=== PATIENT | female | born 1950 | race Caucasian/White ===

== ENCOUNTER 2024-10-06 19:13 | Inpatient (IN) | payer MEDICARE, OTHER ==
--- NOTE | 2024-10-06 20:19 | ED ---
General Adult HPI - General Chief complaint: Shortness of Breath Stated complaint: difficulty breathing Time Seen by Provider: 10/06/24 19:31 Source: patient Mode of arrival: EMS Limitations: no limitations - History of Present Illness Initial comments: Dictation was produced using [employer] dictation software. please excuse any grammatical, word or spelling errors. Chief Complaint: 74-year-old female with rectal cancer presents to the emergency department for dyspnea History of Present Illness: Patient 74-year-old female multiple comorbidities. She has history of rectal cancer on chemotherapy presents emergency department for worsening dyspnea. She states she has history of COPD and wears oxygen at home. States that she has a cough. Denies any fever chills or night sweats. Does not take any anticoagulation medications. Denies any chest pain. The ROS documented in this emergency department record has been reviewed and confirmed by me. Those systems with pertinent positive or negative responses have been documented in the HPI. All other systems are other negative and/or noncontributory. - Related Data Allergies Allergy/AdvReac Type Severity Reaction Status Date / Time cefuroxime [From Ceftin] Allergy Rash/Hives Verified 10/06/24 19:22 naproxen Allergy Rash/Hives Verified 10/06/24 19:21 Review of Systems ROS Statement: Those systems with pertinent positive or pertinent negative responses have been documented in the HPI. ROS Other: All systems not noted in ROS Statement are negative. Past Medical History Additional Past Medical History / Comment(s): rectal cancer currently being treated. colostomy bag. History of Any Multi-Drug Resistant Organisms: None Reported Additional Past Surgical History / Comment(s): 3x rectal surgery. steve haider Past Psychological History: No Psychological Hx Reported Smoking Status: Current every day smoker Past Alcohol Use History: None Reported Past Drug Use History: None Reported General Exam - General Exam Comments Initial Comments: PHYSICAL EXAM: General Impression: Alert and oriented x3, dyspneic HEENT: Normocephalic atraumatic, extra-ocular movements intact, pupils equal and reactive to light bilaterally, mucous membranes moist. Cardiovascular: Heart regular rate and rhythm Chest: Retracting, poor air exchange, mild expiratory and inspiratory wheezing Abdomen: abdomen soft, non-tender, non-distended, no organomegaly Musculoskeletal: Pulses present and equal in all extremities, 1+ pitting edema bilaterally Motor: no focal deficits noted Neurological: CN II-XII grossly intact, no focal motor or sensory deficits noted Skin: Intact with no visualized rashes Psych: Normal affect and mood Limitations: no limitations Course Vital Signs 10/06/24 10/06/24 10/06/24 19:15 20:10 20:58 Temperature 98.0 F Pulse Rate 97 93 91 Respiratory 24 22 Rate Blood Pressure 169/86 153/87 O2 Sat by Pulse 100 98 Oximetry 10/06/24 21:08 Temperature Pulse Rate 90 Respiratory Rate Blood Pressure O2 Sat by Pulse Oximetry EKG Findings - EKG Comments: EKG Findings:: My EKG interpretation: Ventricular rate 97, sinus rhythm,. 150, QRS 81, QTc 403. No FL prolongation, no QTC prolongation, no ST or T-wave changes noted. . Overall, this EKG is unremarkable Medical Decision Making - Medical Decision Making Was pt. sent in by a medical professional or institution (, PA, MACH[employer], urgent care, hospital, or prison...) When possible be specific @ -No Did you speak to anyone other than the patient for history (EMS, parent, family, police, friend...)? What history was obtained from this source @ -No Did you review nursing and triage notes (agree or disagree)? Why? @ -I reviewed and agree with nursing and triage notes Were old charts reviewed (outside hosp., previous admission, EMS record, old EKG, old radiological studies, urgent care reports/EKG's, prison records)? Report findings @ -No old charts were reviewed Differential Diagnosis (chest pain, altered mental status, abdominal pain women, abdominal pain men, vaginal bleeding, musculoskeletal, weakness, fever, dyspnea, syncope, headache, dizziness, GI bleed, back pain, seizure, CVA, palpatations, mental health)? @ -Differential Dyspnea: Coronary syndrome, arrhythmia, tamponade, asthma, COPD, pulmonary embolism, pneumonia, pneumothorax, pulmonary effusion, anaphylaxis, diabetic ketoacidosis, flailed chest, pulmonary contusion, diaphragmatic rupture, anemia, n euromuscular, this is not meant to be an all-inclusive list. EKG interpreted by me (3pts min.). @ -See above X-rays interpreted by me (1pt min.). @ -Chest x-ray shows COPD CT interpreted by me (1pt min.). @ -CT angio of the chest shows no PE U/S interpreted by me (1pt. min.). @ -None done What testing was considered but not performed or refused? (CT, X-rays, U/S, labs)? Why? @ -None What meds were considered but not given or refused? Why? @ -None Was smoking cessation discussed for >3mins.? @ -No Were there social determinants of health that impacted care today? How? (Homelessness, low income, unemployed, alcoholism, drug addiction, transportation, low edu. Level, literacy, decrease access to med. care, correction, rehab)? @ -No Was there de-escalation of care discussed even if they declined (Discuss DNR or withdrawal of care, Hospice)? DNR status @ -No What co-morbidities impacted this encounter? (DM, HTN, Smoking, COPD, CAD, Cancer, CVA, ARF, Chemo, Hep., AIDS, mental health diagnosis, sleep apnea, morbid obesity)? @ -Rectal cancer, COPD Was patient admitted / discharged? Hospital course, mention meds given and route, prescriptions, significant lab abnormalities, going to OR and other pertinent info. @ -74-year-old female history of rectal cancer presents to the ER for worsening dyspnea. Vital signs upon arrival are within acceptable limits however patient does appear to be significantly dyspneic at the bedside. Laboratory evaluation obtained labs mostly unremarkable. Elevated D-dimer 3.6. CT angiography shows no PE or any other acute processes. Given patient's work of breathing she is to be admitted for respiratory failure consultation to pulmonology. Patient given Decadron. Case discussed with hospitalist for admission Did you discuss the management of the patient with other professionals (professionals i.e. , PA, M[employer], lab, RT, psych nurse, social media job titles, lawyer criminal, teacher, combat systems officer, case investigator)? Give summary @ -See above Was critical care preformed (if so, how long)? @ -No Undiagnosed new problem with uncertain prognosis? @ -No Drug Therapy requiring intensive monitoring for toxicity (Heparin, Nitro, Insulin, Cardizem)? @ -No Were any procedures done? @ -No Diagnosis/symptom? Acute, or Chronic, or Acute on Chronic? Uncomplicated (without systemic symptoms) or Complicated (systemic symptoms)? @ -COPD complicated by respiratory failure Side effects of treatment? @ -No Exacerbation, Progression, or Severe Exacerbation? @ -yes Poses a threat to life or bodily function? How? (Chest pain, USA, LA, pneumonia, PE, COPD, DKA, ARF, appy, cholecystitis, CVA, Diverticulitis, Homicidal, Suicidal, threat to staff... and all critical care pts) @ -yes - Lab Data Result diagrams: 10/06/24 20:05 10/06/24 20:05 Lab Results 10/06/24 10/06/24 10/06/24 Range/Units 20:05 20:05 20:05 WBC 9.1 (3.8-10.6) k/uL RBC 3.97 (3.80-5.40) m/uL Hgb 11.0 L (11.4-16.0) gm/dL Hct 36.8 (34.0-46.0) % MCV 92.7 (80.0-100.0) fL MCH 27.8 (25.0-35.0) pg MCHC 30.0 L (31.0-37.0) g/dL RDW 17.1 H (11.5-15.5) % Plt Count 259 (150-450) k/uL MPV 7.5 Neutrophils % 69 % Lymphocytes % 14 % Monocytes % 9 % Eosinophils % 4 % Basophils % 0 % Neutrophils # 6.3 (1.3-7.7) k/uL Lymphocytes # 1.3 (1.0-4.8) k/uL Monocytes # 0.8 (0-1.0) k/uL Eosinophils # 0.4 (0-0.7) k/uL Basophils # 0.0 (0-0.2) k/uL Hypochromasia Marked Anisocytosis Slight PT 10.4 (10.0-12.5) sec INR 0.9 (<1.2) APTT 18.1 L (22.0-30.0) sec D-Dimer (<0.60) mg/L FEU Sodium 136 L (137-145) mmol/L Potassium 3.9 (3.5-5.1) mmol/L Chloride 99 (98-107) mmol/L Carbon Dioxide 27 (22-30) mmol/L Anion Gap 10 mmol/L BUN 15 (7-17) mg/dL Creatinine 0.80 (0.52-1.04) mg/dL Est GFR (CKD-EPI)AfAm 84 (>60 ml/min/1.73 sqM) Est GFR (CKD-EPI)NonAf 73 (>60 ml/min/1.73 sqM) Glucose 122 H (74-99) mg/dL Plasma Lactic Acid El (0.7-2.0) mmol/L Calcium 9.2 (8.4-10.2) mg/dL Magnesium 2.0 (1.6-2.3) mg/dL Total Bilirubin 0.5 (0.2-1.3) mg/dL AST 18 (14-36) U/L ALT 12 (4-34) U/L Alkaline Phosphatase 140 H (38-126) U/L Troponin I (0.000-0.034) ng/mL NT-Pro-B Natriuret Pep 397 pg/mL Total Protein 6.8 (6.3-8.2) g/dL Albumin 4.2 (3.5-5.0) g/dL Influenza Type A (PCR) (Not Detectd) Influenza Type B (PCR) (Not Detectd) RSV (PCR) (Not Detectd) SARS-CoV-2 (PCR) (Not Detectd) 10/06/24 10/06/24 10/06/24 Range/Units 20:05 20:05 20:05 WBC (3.8-10.6) k/uL RBC (3.80-5.40) m/uL Hgb (11.4-16.0) gm/dL Hct (34.0-46.0) % MCV (80.0-100.0) fL MCH (25.0-35.0) pg MCHC (31.0-37.0) g/dL RDW (11.5-15.5) % Plt Count (150-450) k/uL MPV Neutrophils % % Lymphocytes % % Monocytes % % Eosinophils % % Basophils % % Neutrophils # (1.3-7.7) k/uL Lymphocytes # (1.0-4.8) k/uL Monocytes # (0-1.0) k/uL Eosinophils # (0-0.7) k/uL Basophils # (0-0.2) k/uL Hypochromasia Anisocytosis PT (10.0-12.5) sec INR (<1.2) APTT (22.0-30.0) sec D-Dimer 3.60 H (<0.60) mg/L FEU Sodium (137-145) mmol/L Potassium (3.5-5.1) mmol/L Chloride (98-107) mmol/L Carbon Dioxide (22-30) mmol/L Anion Gap mmol/L BUN (7-17) mg/dL Creatinine (0.52-1.04) mg/dL Est GFR (CKD-EPI)AfAm (>60 ml/min/1.73 sqM) Est GFR (CKD-EPI)NonAf (>60 ml/min/1.73 sqM) Glucose (74-99) mg/dL Plasma Lactic Acid El 1.4 (0.7-2.0) mmol/L Calcium (8.4-10.2) mg/dL Magnesium (1.6-2.3) mg/dL Total Bilirubin (0.2-1.3) mg/dL AST (14-36) U/L ALT (4-34) U/L Alkaline Phosphatase (38-126) U/L Troponin I <0.012 (0.000-0.034) ng/mL NT-Pro-B Natriuret Pep pg/mL Total Protein (6.3-8.2) g/dL Albumin (3.5-5.0) g/dL Influenza Type A (PCR) (Not Detectd) Influenza Type B (PCR) (Not Detectd) RSV (PCR) (Not Detectd) SARS-CoV-2 (PCR) (Not Detectd) 10/06/24 Range/Units 20:08 WBC (3.8-10.6) k/uL RBC (3.80-5.40) m/uL Hgb (11.4-16.0) gm/dL Hct (34.0-46.0) % MCV (80.0-100.0) fL MCH (25.0-35.0) pg MCHC (31.0-37.0) g/dL RDW (11.5-15.5) % Plt Count (150-450) k/uL MPV Neutrophils % % Lymphocytes % % Monocytes % % Eosinophils % % Basophils % % Neutrophils # (1.3-7.7) k/uL Lymphocytes # (1.0-4.8) k/uL Monocytes # (0-1.0) k/uL Eosinophils # (0-0.7) k/uL Basophils # (0-0.2) k/uL Hypochromasia Anisocytosis PT (10.0-12.5) sec INR (<1.2) APTT (22.0-30.0) sec D-Dimer (<0.60) mg/L FEU Sodium (137-145) mmol/L Potassium (3.5-5.1) mmol/L Chloride (98-107) mmol/L Carbon Dioxide (22-30) mmol/L Anion Gap mmol/L BUN (7-17) mg/dL Creatinine (0.52-1.04) mg/dL Est GFR (CKD-EPI)AfAm (>60 ml/min/1.73 sqM) Est GFR (CKD-EPI)NonAf (>60 ml/min/1.73 sqM) Glucose (74-99) mg/dL Plasma Lactic Acid El (0.7-2.0) mmol/L Calcium (8.4-10.2) mg/dL Magnesium (1.6-2.3) mg/dL Total Bilirubin (0.2-1.3) mg/dL AST (14-36) U/L ALT (4-34) U/L Alkaline Phosphatase (38-126) U/L Troponin I (0.000-0.034) ng/mL NT-Pro-B Natriuret Pep pg/mL Total Protein (6.3-8.2) g/dL Albumin (3.5-5.0) g/dL Influenza Type A (PCR) Not Detected (Not Detectd) Influenza Type B (PCR) Not Detected (Not Detectd) RSV (PCR) Not Detected (Not Detectd) SARS-CoV-2 (PCR) Not Detected (Not Detectd) Disposition Clinical Impression: COPD exacerbation Disposition: ADMITTED IP TO THIS HOSP Condition: Fair Referrals: None,Stated [REFERRING] - 1-2 days Decision Time: 22:01
[2024-10-06 20:24] LABS: Anisocytosis Slight; Basophils % (A) 0 %; Eosinophils # (A) 0.4 k/uL (0-0.7); Eosinophils % (A) 4 %; HCT 36.8 % (34.0-46.0); Hypochromasia Marked; Lymphocytes # (A) 1.3 k/uL (1.0-4.8); Lymphocytes % (A) 14 %; MCH 27.8 pg (25.0-35.0); MCV 92.7 fL (80.0-100.0); Mean Platelet Volume 7.5; Monocytes # (A) 0.8 k/uL (0-1.0); Monocytes % (A) 9 %; Neutrophils # (A) 6.3 k/uL (1.3-7.7); Neutrophils % (A) 69 %; Platelet Count 259 k/uL (150-450); RBC 3.97 m/uL (3.80-5.40); RDW 17.1 % (11.5-15.5); WBC 9.1 k/uL (3.8-10.6)
[2024-10-06 20:40] LABS: INR 0.9 (<1.2); Prothrombin Time 10.4 sec (10.0-12.5)
[2024-10-06] MEDS: DEXAMETHASONE SOD PHOSPHATE 10 MG/ML 1 ML VIAL IV STA (20:41)
--- NOTE | 2024-10-06 20:44 | XR ---
EXAMINATION TYPE: XR chest 2V DATE OF EXAM: 10/06/2024 8:25 PM COMPARISON: None CLINICAL INDICATION: Female, 74 years old with history of dyspnea; [facility] TECHNIQUE: XR chest 2V Frontal and lateral views of the chest. FINDINGS: Lungs/Pleura: There is flattening of the diaphragm with increased lucency of the lungs. No evidence o f pneumothorax, pleural effusion or focal consolidation. Pulmonary vascularity: Unremarkable. Heart/mediastinum: Cardiomediastinal silhouette is unremarkable. Musculoskeletal: No acute osseous pathology. Other findings: None Lines/Tubes: Ualviv-a-Jylu projecting over the right hemithorax with distal tip at the cavoatrial junction. IMPRESSION: 1. No acute cardiopulmonary disease process. 2. COPD changes. [facility], , 10/06/2024 8:41 PM
[2024-10-06 20:49] LABS: Partial Thromboplastin Time 18.1 sec (22.0-30.0)
[2024-10-06 20:54] LABS: ALT 12 U/L (4-34); AST 18 U/L (14-36); African American GFR (CKD) 84 (>60 ml/min/1.73 sqM); Albumin 4.2 g/dL (3.5-5.0); Alkaline Phosphatase 140 U/L (38-126); Anion Gap 10 mmol/L; Blood Urea Nitrogen 15 mg/dL (7-17); Calcium 9.2 mg/dL (8.4-10.2); Carbon Dioxide 27 mmol/L (22-30); Chloride 99 mmol/L (98-107); Glucose 122 mg/dL (74-99); Non-African American GFR(CKD) 73 (>60 ml/min/1.73 sqM); Potassium 3.9 mmol/L (3.5-5.1); Sodium 136 mmol/L (137-145); Total Bilirubin 0.5 mg/dL (0.2-1.3); Total Protein 6.8 g/dL (6.3-8.2)
[2024-10-06] MEDS: IPRATROPIUM-ALBUTEROL 3 ML NEB INHALATION STA (20:57)
[2024-10-06 21:00] LABS: Influenza A Not Detected (Not Detectd); Influenza B Not Detected (Not Detectd); RSV Not Detected (Not Detectd)
[2024-10-06 21:02] LABS: NT-Pro-B-Type Natriuretic Pept 397 pg/mL
[2024-10-06] MEDS: HYDROmorphone 1 MG/ML 1 ML SYRINGE IVP STA (21:12)
--- NOTE | 2024-10-06 21:46 | CT ---
EXAMINATION TYPE: CT angio chest DATE OF EXAM: 10/06/2024 9:43 PM COMPARISON: Chest radiograph from same day. CLINICAL INDICATION: Female, 74 years old with history of positive D-dimer; COPD exacerbation from ho me. pt speaking few words at a time. AOx4 TECHNIQUE/CONTRAST: CTA scan of the thorax is performed with IV Contrast, patient injected with 57 ml mL of Isovue 370, M IP images are created and reviewed these are created on a separate workstation.. CT DLP: 176 mGycm, Automated exposure control for dose reduction was used. FINDINGS: Lungs/Pleura: No evidence of focal consolidation, pleural effusion or pneumothorax. Mild centrilobula r emphysema changes. Flattening of the diaphragm. Airway: Large airways are patent. Heart: Size within normal limits Vasculature: There is no evidence for a filling defect within the pulmonary vasculature to suggest ac miles pulmonary embolism. The pulmonary artery is of normal size. Right chest wall Cbyblx-k-Ludp with tip terminating in the superior vena cava. Mild atherosclerosis of the arterial vasculature. Mediastinum: No gross evidence of adenopathy. Musculoskeletal: No acute osseous abnormalities Soft Tissues/lymph nodes: Bilateral breast implants appear intact. Lower neck: No significant findings. Upper Abdomen: No significant findings. IMPRESSION: 1. No evidence of pulmonary embolism. 2. Mild COPD. 3. Bilateral breast implants appear intact. [facility], , 10/06/2024 9:44 PM
[2024-10-06] MEDS ORDERED: NALOXONE 0.4 MG/ML 1 ML VIAL IVP PRN (21:57)
[2024-10-06] MEDS ORDERED: ACETAMINOPHEN TAB 325 MG TAB PO PRN (21:57)
[2024-10-06] MEDS: AZITHROMYCIN 500 MG TAB PO SCH (23:08)
[2024-10-06] MEDS: PHENYTOIN SODIUM EXTENDED 100 MG CAP PO STA (23:42)
[2024-10-07] MEDS: ONDANSETRON 4 MG/2 ML VIAL IVP PRN (02:17)
--- NOTE | 2024-10-07 03:04 | P.HPIM ---
History of Present Illness H&P Date: 10/07/24 History of present illness; Patient is a 74-year-old female with colorectal cancer (stage 2 as reported by patient, s/p colectomy and colostomy, completed radiation and currently undergoing 3rd round of chemo, following with Oncology out of [facility]), hypertension, COPD, chronic respiratory failure on 2 L home oxygen presents with new onset shortness of breath. Patient states she has had trouble breathing and productive cough for the last several days. She reports some associated chills, back pain, weakness and dizziness. Denies recent immobilization or pleuritic pain. She also reports echocardiogram done at [facility] completed about 2 months ago, and is unsure of results however was subsequently began on Lasix. Patient reports absence of chest pain, palpitations, diaphoresis, abdominal pain, nausea, vomiting, diarrhea, myalgia, headache, and dysuria. Spoke with the ER physician, patient admission was accepted by internal medicine service for treatment. REVIEW OF SYSTEMS: Pertinent positives and negatives noted in HPI. PHYSICAL EXAMINATION: Vitals reviewed GENERAL: Resting comfortably in bed. Frail EYES: PERRL, no scleral injection or icterus. No vision loss HENT: Normocephalic, atraumatic, hearing acuity intact, moist mucous membranes NECK: No tracheal deviation, full range of motion. CARDIOVASCULAR: S1 and S2 present. Tachycardic. No murmurs, rubs, or gallops. PULMONARY: Bilateral expiratory wheezing with some diffuse coarse breath sounds, no wheezing, rhonchi, or crackles. ABDOMEN: Soft, nontender, nondistended. No palpable organomegaly, colostomy bag in place with yellow liquid stool MUSCULOSKELETAL: No apparent joint swelling and deformities EXTREMITIES: No apparent cyanosis, clubbing. 1+ pedal edema NEUROLOGICAL: Alert and oriented. Gross neurological examination with no apparent focal deficits. SKIN: Right upper chest wall Chemo-Port ER FINDINGS: Labs significant for hemoglobin 11.0, D-dimer 3.6, sodium 136, glucose 122, alkaline phosphatase 140, troponin <0.012, proBNP 397 EKG independently interpreted showed sinus rhythm, heart rate of 97, QTc 403, no ST segment elevation or depression seen, no T-wave inversions seen. Chest x-ray done independently interpreted showed no acute cardiopulmonary process. CT angio chest independently interpreted no evidence of pulmonary embolism, mild COPD. Assessment and Plan: In summary, patient is a 74-year-old female with colorectal cancer recently completed chemotherapy, hypertension, COPD, chronic respiratory failure on 2 L home oxygen presents with new onset shortness of breath. #Acute COPD exacerbation with acute on chronic hypoxic respiratory failure - Chest x-ray no acute process Viral respiratory panel negative - Begin bronchodilators DuoNeb 0.5-3mg/3ml 4 times daily and QID prn - Initiate Solumedrol 40 mg IV q6h - Empiric antibiotics, begin azithromycin 500 mg daily, day #1 Begin Mucinex 600 mg every 12 hours - Continue O2 supplementation - Pulmonology consulted # Peripheral edema, amlodipine versus new diagnosis CHF versus chemotherapy side effect Echocardiogram ordered Consider reducing amlodipine to 5 mg #Elevated ALP Monitor CMP Chronic Medical Conditions #Essential hypertension - Resume home Amlodipine, Lasix #GERD- Resume home Pantoprazole #Colorectal cancer, stage unverified #Seizuresresume phenytoin DVT ppx: Subq Lovenox 40 meq daily Code status: Full code F: P.o. E: Replete as needed N: Heart healthy diet A: Ambulatory Anticipated discharge place: Pending clinical course Anticipated discharge time: Pending clinical course Dictation was produced using [employer] dictation software. Please excuse any gramm atical, word or spelling errors. Past Medical History Past Medical History: Heart Failure, COPD, GERD/Reflux, Hypertension Additional Past Medical History / Comment(s): rectal cancer currently being treated. colostomy bag. new chf History of Any Multi-Drug Resistant Organisms: None Reported Additional Past Surgical History / Comment(s): 3x rectal surgery. steve haider Past Anesthesia/Blood Transfusion Reactions: No Reported Reaction Past Psychological History: No Psychological Hx Reported Smoking Status: Current every day smoker Past Alcohol Use History: None Reported Past Drug Use History: None Reported Medications and Allergies Allergies Allergy/AdvReac Type Severity Reaction Status Date / Time cefuroxime [From Ceftin] Allergy Rash/Hives Verified 10/06/24 19:22 naproxen Allergy Rash/Hives Verified 10/06/24 19:21 Physical Exam Vitals: Vital Signs Temp Pulse Pulse Resp BP BP Pulse Ox 10/07/24 00:52 97.6 F 94 16 161/90 98 10/06/24 23:14 98.2 F 95 18 149/74 97 10/06/24 21:08 90 10/06/24 20:58 91 10/06/24 20:10 93 22 153/87 98 10/06/24 19:15 98.0 F 97 24 169/86 100 Intake and Output 10/06/24 10/06/24 10/07/24 14:59 22:59 06:59 Other: Weight 45.359 kg 45.359 kg Results CBC & Chem 7: 10/06/24 20:05 10/06/24 20:05 Labs: Abnormal Lab Results - Last 24 Hours (Table) 10/06/24 10/06/24 10/06/24 Range/Units 20:05 20:05 20:05 Hgb 11.0 L (11.4-16.0) gm/dL MCHC 30.0 L (31.0-37.0) g/dL RDW 17.1 H (11.5-15.5) % APTT 18.1 L (22.0-30.0) sec D-Dimer (<0.60) mg/L FEU Sodium 136 L (137-145) mmol/L Glucose 122 H (74-99) mg/dL Alkaline Phosphatase 140 H (38-126) U/L 10/06/24 Range/Units 20:05 Hgb (11.4-16.0) gm/dL MCHC (31.0-37.0) g/dL RDW (11.5-15.5) % APTT (22.0-30.0) sec D-Dimer 3.60 H (<0.60) mg/L FEU Sodium (137-145) mmol/L Glucose (74-99) mg/dL Alkaline Phosphatase (38-126) U/L Thrombosis Risk Factor Assmnt - Choose All That Apply Any of the Below Risk Factors Present?: Yes Each Factor Represents 1 point: Abnormal pulmonary function (COPD), Swollen legs (current) Other Risk Factors: Yes Each Risk Factor Represents 2 Points: Malignancy Other congenital or acquired thrombophilia - If yes, enter type in comment: No Thrombosis Risk Factor Assessment Total Risk Factor Score: 4 Thrombosis Risk Factor Assessment Level: Moderate Risk
[2024-10-07 06:14] LABS: ALT 12 U/L (4-34); AST 16 U/L (14-36); African American GFR (CKD) >90 (>60 ml/min/1.73 sqM); Albumin 3.5 g/dL (3.5-5.0); Albumin/Globulin Ratio 1.5; Alkaline Phosphatase 115 U/L (38-126); Anion Gap 5 mmol/L; Blood Urea Nitrogen 13 mg/dL (7-17); Calcium 9.3 mg/dL (8.4-10.2); Carbon Dioxide 28 mmol/L (22-30); Chloride 101 mmol/L (98-107); Globulin 2.3 g/dL; Glucose 137 mg/dL (74-99); Non-African American GFR(CKD) >90 (>60 ml/min/1.73 sqM); Sodium 134 mmol/L (137-145); Total Bilirubin 0.3 mg/dL (0.2-1.3); Total Protein 5.8 g/dL (6.3-8.2)
[2024-10-07] MEDS: HYDROcodone/APAP 5-325MG 1 EACH TAB PO PRN (06:45)
[2024-10-07] MEDS: methylPREDNISolone SOD SUCCI 40 MG/ML 1 ML VIAL IV SCH (06:46)
[2024-10-07 07:50] LABS: Anisocytosis Slight; Basophils % (A) 0 %; Eosinophils % (A) 0 %; HCT 33.2 % (34.0-46.0); HGB 9.7 gm/dL (11.4-16.0); Hypochromasia Marked; Lymphocytes # (A) 0.4 k/uL (1.0-4.8); Lymphocytes % (A) 12 %; MCH 27.8 pg (25.0-35.0); MCHC 29.3 g/dL (31.0-37.0); Monocytes # (A) 0.2 k/uL (0-1.0); Monocytes % (A) 5 %; Neutrophils # (A) 2.8 k/uL (1.3-7.7); Neutrophils % (A) 82 %; Platelet Count 219 k/uL (150-450); RBC 3.49 m/uL (3.80-5.40); RDW 17.1 % (11.5-15.5); WBC 3.4 k/uL (3.8-10.6)
[2024-10-07] MEDS: IPRATROPIUM-ALBUTEROL 3 ML NEB INHALATION SCH (08:50)
[2024-10-07] MEDS ORDERED: predniSONE 20 MG TAB PO SCH (09:00)
[2024-10-07] MEDS: PANTOPRAZOLE 40 MG TABLET PO SCH (09:10)
[2024-10-07] MEDS: SENNOSIDES-DOCUSATE SODIUM 1 EACH TAB PO SCH (09:10)
[2024-10-07] MEDS: SPIRONOLACTONE 25 MG TAB PO SCH (09:10)
[2024-10-07] MEDS: amLODIPine 10 MG TAB PO SCH (09:10)
[2024-10-07] MEDS: FUROSEMIDE 10 MG/ML 4 ML VIAL IV SCH (09:10)
[2024-10-07] MEDS: ENOXAPARIN 40 MG/0.4 ML SYRINGE SQ SCH (09:11)
[2024-10-07] MEDS: guaiFENesin 600 MG TABLET.ER PO SCH (09:11)
[2024-10-07 11:45] VITALS: BMI 17.6
--- NOTE | 2024-10-07 13:35 | P.CNPUL ---
History of Present Illness Consult date: 10/07/24 Requesting physician: Zuri Trotter Reason for consult: dyspnea, COPD Chief complaint: Shortness of breath, back pain History of present illness: This is a pleasant very thin cachectic 74-year-old female who has a history of rectal cancer and had undergone chemotherapy and radiation. She follows with Dr. Gabi Roberto out of [facility]. She states a recent PET scan is showing continued evidence of cancer but no metastasis. She does have chronic and ongoing tobacco dependence of greater than 50 years and chronic obstructive pulmonary disease. She does have home oxygen. She is maintained on Trelegy and DuoNebs. She has not been seen by meat and seafood manager in the outpatient setting. She presented here to the emergency room last evening with complaints of increasing shortness of breath, cough and congestion. She also was having pain in her back. Chest x-ray shows no acute cardiopulmonary process. Evidence of COPD. CT angiogram ruled out pulmonary embolism. There is mild COPD. White count 3.4. Hemoglobin 9.7. Platelets 219. Sodium 134. Potassium 4.0. Bicarb 28. BUN 13. Creatinine 0.59. D-dimer 3.60. Troponin negative x 1. proBNP 397. Viral screen is negative. She is seen today in consultation on the regular medical floor. She is currently sitting up in bed. Awake and alert in no acute distress. She is maintaining O2 saturations in the 90s on 2 L/min per nasal ca nnula. He is feeling quite a bit better today compared to yesterday. She has been afebrile. Hemodynamically stable. Review of Systems REVIEW OF SYSTEMS: CONSTITUTIONAL: Denies any recent significant weight loss or weight gain. EYES: Denies change in vision. EARS, NOSE, MOUTH, THROAT: Denies headaches, denies sore throat. CARDIOVASCULAR: Denies chest pain, palpitations or syncopal episodes. RESPIRATORY: Positive for shortness of breath, cough, congestion no hemoptysis. GASTROINTESTINAL: Denies change in appetite, denies abdominal pain GENITOURINARY: Denies hematuria, denies infections. MUSKULOSKELETAL: Positive for back pain. INTEGUMENTARY: Denies rash, denies eczema. NEUROLOGICAL: Denies recent memory loss, no recent seizure activity. PSYCHIATRIC: Denies anxiety, denies depression. HEMATOLOGIC/LYMPHATIC: Denies anemia, denies enlarged lymph nodes. Past Medical History Past Medical History: Heart Failure, COPD, GERD/Reflux, Hypertension Additional Past Medical History / Comment(s): rectal cancer currently being treated. colostomy bag. new chf History of Any Multi-Drug Resistant Organisms: None Reported Additional Past Surgical History / Comment(s): 3x rectal surgery. steve haider Past Anesthesia/Blood Transfusion Reactions: No Reported Reaction Past Psychological History: No Psychological Hx Reported Smoking Status: Current every day smoker Past Alcohol Use History: None Reported Past Drug Use History: None Reported Medications and Allergies Home Medications Medication Instructions Recorded Confirmed Type Fluticasone/Umeclidin/Vilanter 1 puff INHALATION RT-DAILY 10/07/24 10/07/24 History [Trelegy Ellipta 100-62.5-25] Furosemide [Lasix] 20 mg PO DAILY 10/07/24 10/07/24 History HYDROcodone/APAP 5-325MG [[place] 1 tab PO Q4HR 10/07/24 10/07/24 History 5-325] Ipratropium-Albuterol Nebulize 3 ml INHALATION RT-Q6H 10/07/24 10/07/24 History [Duoneb 0.5 mg-3 mg/3 ml Soln] Omeprazole [PriLOSEC] 20 mg PO DAILY 10/07/24 10/07/24 History Phenytoin Sodium Extended 200 mg PO HS 10/07/24 10/07/24 History [Dilantin] Spironolactone [Aldactone] 50 mg PO DAILY 10/07/24 10/07/24 History Sulfamethox-Tmp 400-80Mg [Bactrim 1 tab PO BID 10/07/24 10/07/24 History SS 400-80 mg] amLODIPine [Norvasc] 10 mg PO DAILY 10/07/24 10/07/24 History Allergies Allergy/AdvReac Type Severity Reaction Status Date / Time cefuroxime [From Ceftin] Allergy Rash/Hives Verified 10/07/24 09:59 naproxen Allergy Rash/Hives Verified 10/07/24 09:59 Physical Exam Vitals: Vital Signs Temp Pulse Pulse Resp BP BP Pulse Ox 10/07/24 12:27 84 10/07/24 12:16 80 10/07/24 09:05 80 10/07/24 08:50 80 10/07/24 07:24 97.8 F 77 16 124/69 99 10/07/24 00:52 97.6 F 94 16 161/90 98 10/06/24 23:14 98.2 F 95 18 149/74 97 10/06/24 21:08 90 10/06/24 20:58 91 10/06/24 20:10 93 22 153/87 98 10/06/24 19:15 98.0 F 97 24 169/86 100 Intake and Output 10/06/24 10/07/24 10/07/24 22:59 06:59 14:59 Other: Voiding Method Bedside Commode Bedside Commode # Voids 2 Weight 45.359 kg 45.359 kg 45.359 kg GENERAL EXAM: Alert, cachectic, 74-year-old female, on 2 L nasal cannula, comfortable in no apparent distress. HEAD: Normocephalic. EYES: Normal reaction of pupils, equal size. NOSE: Clear with pink turbinates. THROAT: No erythema or exudates. NECK: No masses, no JVD. CHEST: No chest wall deformity. Right subclavian Port-A-Cath in place. LUNGS: Equal air entry with end expiratory wheeze, diminished. CVS: S1 and S2 normal with no audible murmur, regular rhythm. ABDOMEN: No hepatosplenomegaly, normal bowel sounds, no guarding or rigidity. SPINE: No scoliosis or deformity SKIN: No rashes CENTRAL NERVOUS SYSTEM: No focal deficits, tone is normal in all 4 extremities. EXTREMITIES: There is 1+ peripheral edema. No clubbing, no cyanosis. Peripheral pulses are intact. Results - Laboratory Findings CBC and BMP: 10/07/24 05:31 10/07/24 05:31 PT/INR, D-dimer PT 10.4 sec (10.0-12.5) 10/06/24 20:05 INR 0.9 (<1.2) 10/06/24 20:05 D-Dimer 3.60 mg/L FEU (<0.60) H 10/06/24 20:05 Abnormal lab findings: Abnormal Labs 10/06/24 10/06/24 10/06/24 20:05 20:05 20:05 WBC RBC Hgb 11.0 L Hct MCHC 30.0 L RDW 17.1 H Lymphocytes # APTT 18.1 L D-Dimer Sodium 136 L Glucose 122 H Alkaline Phosphatase 140 H Total Protein 10/06/24 10/07/24 10/07/24 20:05 05:31 05:31 WBC 3.4 L RBC 3.49 L Hgb 9.7 L Hct 33.2 L MCHC 29.3 L RDW 17.1 H Lymphocytes # 0.4 L APTT D-Dimer 3.60 H Sodium 134 L Glucose 137 H Alkaline Phosphatase Total Protein 5.8 L - Diagnostic Findings Chest x-ray: image reviewed CT scan - chest: image reviewed Assessment and Plan Assessment: Acute on chronic hypoxemic respiratory failure secondary to an acute exacerbation of chronic obstructive pulmonary disease. Chest x-ray shows no acute process. CT angiogram ruled out pulmonary embolism. Viral screen negative Peripheral edema, on diuretics in the outpatient setting Severe oxygen dependent chronic obstructive pulmonary disease Chronic and ongoing tobacco dependence History of rectal cancer status post chemoradiation following at [facility] History of seizures, maintained on Dilantin Gastroesophageal reflux disease, maintained on Prilosec Plan: The patient was seen and evaluated Imaging, labs and medications reviewed Echocardiogram pending Continue DuoNeb inhalations, Symbicort Continue IV Solu-Medrol Lovenox for DVT prophylaxis Protonix for GI prophylaxis Titrate the FiO2 as tolerated Probable discharge in the a.m. We will continue to follow and make further recommendations based on her clinical status I have personally seen and examined the patient, performed the documentation and the assessment and plan as written. Number of minutes spent on the visit: 20 Dictation was produced using [employer] dictation software. Please excuse any grammatical, word or spelling errors.
--- NOTE | 2024-10-07 15:28 | CA ---
Transthoracic Echo Report Name: Frances Onofre Age: 74 Gender: F : 1950 Exam Date: 10/07/2024 11:04 Exam Location: [place] [facility] Ht (in): 63 Wt (lb): 100 Ordering Physician: Mason Park MD Attending/Referring Phys: Green Lumber Grader Jenifer Walden RDCS Procedure CPT: Indications: pedal edema, dsypnea Cardiac Hx: Technical Quality: Good Contrast 1: Total Dose (mL): Contrast 2: Total Dose (mL): MEASUREMENTS (Male / Female) Normal Values 2D ECHO LV Diastolic Diameter PLAX 4.1 cm 4.2 - 5.9 / 3.9 - 5.3 cm LV Systolic Diameter PLAX 2.9 cm IVS Diastolic Thickness 1.1 cm 0.6 - 1.0 / 0.6 - 0.9 cm LVPW Diastolic Thickness 1.2 cm 0.6 - 1.0 / 0.6 - 0.9 cm LV Relative Wall Thickness 0.6 RV Internal Dim ED PLAX 1.8 cm LA Systolic Diameter LX 3.4 cm 3.0 - 4.0 / 2.7 - 3.8 cm LV Diastolic Volume MOD BP 54.2 cm??? 67 - 155 / 56 - 104 cm??? LV Systolic Volume MOD BP 15.3 cm??? 22 - 58 / 19 - 49 cm??? LV Ejection Fraction MOD BP 71.8 % >= 55 % LV Cardiac Index MOD BP 2291.1 cm???/min???m??? LV Diastolic Volume MOD 4C 62.2 cm??? LV Systolic Volume MOD 4C 13.4 cm??? LV Ejection Fraction MOD 4C 78.4 % LV Cardiac Index MOD 4C 2868.2 cm???/min???m??? LV Diastolic Length 4C 6.7 cm LV Systolic Length 4C 4.9 cm LV Diastolic Volume MOD 2C 47.2 cm??? LV Systolic Volume MOD 2C 16.4 cm??? LV Ejection Fraction MOD 2C 65.2 % LV Cardiac Index MOD 2C 1808.0 cm???/min???m??? LV Diastolic Length 2C 6.6 cm LV Systolic Length 2C 5.3 cm LA Volume 56.5 cm??? 18 - 58 / 22 - 52 cm??? LA Volume Index 40.0 cm???/m??? 16 - 28 cm???/m??? M-MODE Aortic Root Diameter MM 3.0 cm LA Systolic Diameter MM 3.4 cm LA Ao Ratio MM 1.2 AV Cusp Separation MM 1.7 cm DOPPLER MV Area PHT 2.4 cm??? Mitral E Point Velocity 80.2 cm/s Mitral A Point Velocity 96.8 cm/s Mitral E to A Ratio 0.8 MV Deceleration Time 312.8 ms TR Peak Velocity 228.3 cm/s TR Peak Gradient 20.9 mmHg Right Ventricular Systolic Press 24.0 mmHg FINDINGS Left Ventricle Left ventricular ejection fraction is estimated at 60-65 %. Mildly increased septal wall thickness. Mildly increased posterior wall thickness. Normal left ventricular systolic function with no obvious regional wall motion abnormalities. Left ventricular cavity size normal. Right Ventricle Normal right ventricular size and function. Right ventricular systolic pressure within normal limits. Right Atrium Mild right atrial dilatation. Left Atrium Mildly increased left atrial volume. Mitral Valve Structurally normal mitral valve. Trace to mild mitral regurgitation. No mitral stenosis. Aortic Valve Trileaflet aortic valve. No aortic valve stenosis or regurgitation. Tricuspid Valve Structurally normal tricuspid valve. Mild tricuspid regurgitation. No tricuspid stenosis. Pulmonic Valve Structurally normal pulmonic valve. Trace pulmonic regurgitation. No pulmonic stenosis. Pericardium No pericardial or pleural effusion. Aorta Normal size aortic root and proximal ascending aorta. CONCLUSIONS Left ventricular ejection fraction 60-65% Mild increased left ventricular wall thickness Trace to mild mitral regurgitation RVSP 24 Mild tricuspid regurgitation No pericardial effusion Previewed by: Dr. David Polanco DO (Electronically Signed) Final Date: 07 October 2024 15:27
[2024-10-07] MEDS: MAGNESIUM CITRATE 296 ML BOTTLE PO ONE (16:15)
[2024-10-07] MEDS: SYMBICORT 160-4.5 MCG INHALER INHALATION SCH (18:52)
[2024-10-07] MEDS: MELATONIN 3 MG TABLET PO PRN (21:47)
[2024-10-07] MEDS: PHENYTOIN SODIUM EXTENDED 100 MG CAP PO SCH (21:48)
[2024-10-08 08:34] LABS: Anisocytosis Slight; Basophils % (A) 0 %; Eosinophils % (A) 0 %; HCT 33.3 % (34.0-46.0); Hypochromasia Moderate; Lymphocytes # (A) 0.5 k/uL (1.0-4.8); Lymphocytes % (A) 7 %; MCH 28.1 pg (25.0-35.0); MCV 93.6 fL (80.0-100.0); Mean Platelet Volume 7.8; Monocytes # (A) 0.3 k/uL (0-1.0); Monocytes % (A) 4 %; Neutrophils # (A) 5.7 k/uL (1.3-7.7); Neutrophils % (A) 87 %; Platelet Count 250 k/uL (150-450); RBC 3.55 m/uL (3.80-5.40); RDW 17.1 % (11.5-15.5); WBC 6.6 k/uL (3.8-10.6)
[2024-10-08] MEDS: TIOTROPIUM 2.5 MCG INHALER INHALATION SCH (08:35)
[2024-10-08 08:57] LABS: ALT 13 U/L (4-34); AST 17 U/L (14-36); African American GFR (CKD) >90 (>60 ml/min/1.73 sqM); Albumin 3.6 g/dL (3.5-5.0); Albumin/Globulin Ratio 1.6; Alkaline Phosphatase 103 U/L (38-126); Anion Gap 2 mmol/L; Blood Urea Nitrogen 19 mg/dL (7-17); Calcium 9.1 mg/dL (8.4-10.2); Carbon Dioxide 32 mmol/L (22-30); Chloride 100 mmol/L (98-107); Globulin 2.3 g/dL; Glucose 117 mg/dL (74-99); Non-African American GFR(CKD) 88 (>60 ml/min/1.73 sqM); Potassium 4.7 mmol/L (3.5-5.1); Sodium 134 mmol/L (137-145); Total Bilirubin 0.4 mg/dL (0.2-1.3); Total Protein 5.9 g/dL (6.3-8.2)
--- NOTE | 2024-10-08 12:01 | P.PN ---
Subjective Progress Note Date: 10/08/24 This is a pleasant very thin cachectic 74-year-old female who has a history of rectal cancer and had undergone chemotherapy and radiation. She follows with Dr. Gabi Roberto out of [facility]. She states a recent PET scan is showing continued evidence of cancer but no metastasis. She does have chronic and ongoing tobacco dependence of greater than 50 years and chronic obstructive pulmonary disease. She does have home oxygen. She is maintained on Trelegy and DuoNebs. She has not been seen by vamper in the outpatient setting. She presented here to the emergency room last evening with complaints of increasing shortness of breath, cough and congestion. She also was having pain in her back . Chest x-ray shows no acute cardiopulmonary process. Evidence of COPD. CT angiogram ruled out pulmonary embolism. There is mild COPD. White count 3.4. Hemoglobin 9.7. Platelets 219. Sodium 134. Potassium 4.0. Bicarb 28. BUN 13. Creatinine 0.59. D-dimer 3.60. Troponin negative x 1. proBNP 397. Viral screen is negative. She is seen today in consultation on the regular medical floor. She is currently sitting up in bed. Awake and alert in no acute distress. She is maintaining O2 saturations in the 90s on 2 L/min per nasal cannula. He is feeling quite a bit better today compared to yesterday. She has been afebrile. Hemodynamically stable. The patient is seen today October 08, 2024 in follow-up on the regular medical floor. She is currently sitting up in bed. Awake and alert in no acute distress. Maintaining O2 saturations in the 90s on 2 L/min per nasal cannula. She has been afebrile. Hemodynamically stable. White count 6.6. Hemoglobin 10.0. Platelets 250. Sodium 134. Potassium 4.7. Bicarb 32. BUN 19. Creatinine 0.64. Glucose 117. She is continued on DuoNeb inhalations, Symbicort, Solu-Medrol. She remains on IV diuretics. Lovenox for DVT prophylaxis. Completed empiric antibiotics today. Objective - Vital Signs Vital signs: Vital Signs Temp 97.9 F 10/08/24 06:47 Pulse 84 10/08/24 11:49 Resp 16 10/08/24 06:47 BP 149/71 10/08/24 06:47 Pulse Ox 97 10/08/24 06:47 FiO2 Intake & Output 10/07/24 10/08/24 10/08/24 18:59 06:59 18:59 Intake Total 1214 Balance 1214 Weight 45.359 kg Intake: Oral 1214 Other: Voiding Method Bedside Commode Bedside Commode Bedside Commode # Voids 3 3 - Exam GENERAL EXAM: Alert, frail, cachectic 74-year-old female, on 2 L nasal cannula, in no apparent distress. HEAD: Normocephalic. EYES: Normal reaction of pupils, equal size. NOSE: Clear with pink turbinates. THROAT: No erythema or exudates. NECK: No masses, no JVD. CHEST: No chest wall deformity. LUNGS: Equal air entry with faint end expiratory wheeze, diminished. CVS: S1 and S2 normal with no audible murmur, regular rhythm. ABDOMEN: Ostomy in place with positive output. No hepatosplenomegaly, normal bowel sounds, no guarding or rigidity. SPINE: No scoliosis or deformity SKIN: No rashes CENTRAL NERVOUS SYSTEM: No focal deficits, tone is normal in all 4 extremities. EXTREMITIES: There is trace peripheral edema. No clubbing, no cyanosis. Peripheral pulses are intact. - Labs CBC & Chem 7: 10/08/24 07:33 10/08/24 07:33 Labs: Abnormal Lab Results - Last 24 Hours (Table) 10/08/24 10/08/24 Range/Units 07:33 07:33 RBC 3.55 L (3.80-5.40) m/uL Hgb 10.0 L (11.4-16.0) gm/dL Hct 33.3 L (34.0-46.0) % MCHC 30.0 L (31.0-37.0) g/dL RDW 17.1 H (11.5-15.5) % Lymphocytes # 0.5 L (1.0-4.8) k/uL Sodium 134 L (137-145) mmol/L Carbon Dioxide 32 H (22-30) mmol/L BUN 19 H (7-17) mg/dL Glucose 117 H (74-99) mg/dL Total Protein 5.9 L (6.3-8.2) g/dL Assessment and Plan Assessment: Acute on chronic hypoxemic respiratory failure secondary to an acute exacerbation of chronic obstructive pulmonary disease. Chest x-ray shows no acute process. CT angiogram ruled out pulmonary embolism. Viral screen negative Peripheral edema, on diuretics in the outpatient setting Severe oxygen dependent chronic obstructive pulmonary disease Chronic and ongoing tobacco dependence History of rectal cancer status post chemoradiation following at [facility] History of seizures, maintained on Dilantin Gastroesophageal reflux disease, maintained on Prilosec Plan: The patient was seen and evaluated Echocardiogram, labs and medications reviewed Continue DuoNeb inhalations, Symbicort Solu-Medrol transitioned to prednisone taper Remains on IV diuretics Lovenox for DVT prophylaxis Protonix for GI prophylaxis Titrate the FiO2 as tolerated This patient was seen independently by the pulmonary nurse practitioner addressing pulmonary issues I have personally seen and examined the patient, performed the documentation and the assessment and plan as written. Number of minutes spent on the visit: 25 Dictation was produced using [employer] dictation software. Please excuse any grammatical, word or spelling errors.
--- NOTE | 2024-10-08 12:50 | P.PN ---
Subjective Progress Note Date: 10/08/24 Subjective: Patient seen and examined at bedside. No acute events overnight. Still having difficulty with breathing. Cough improved. On 2 L at home. Pertinent positives and negatives as discussed above, a complete review of systems was performed and all other systems are negative. Vitals Signs Reviewed. General: Nontoxic, no distress, appears at stated age, chronically ill-appearing Derm: Warm, dry, right upper chest wall Chemo-Port Head: Atraumatic, normocephalic, symmetric Eyes: EOMI, no lid lag, anicteric sclera Mouth: No lip lesion, mucus membranes moist Cardiovascular: S1S2 reg, no murmur Lungs: CTA bilateral, no rhonchi, no rales, no accessory muscle use, supplemental oxygen Abdominal: Soft, nontender to palpation, no guarding, no appreciable organomegaly, ostomy Ext: No gross muscle atrophy, no edema, no contractures Neuro: CN II-XI grossly intact, no focal neuro deficits Psych: Alert, oriented, appropriate affect Data Reviewed Today: Pertinent Labs: WBC 6.6, hemoglobin 10, sodium 134, creatinine 0.64 Imaging: No new imaging Assessment and Plan: Active: Acute COPD exacerbation Acute on chronic hypoxic respiratory failure -Discussed with pulmonology, possible discharge tomorrow -Continue IV Solu-Medrol 40 IV every 6 hours, DuoNebs 4 times daily, Pulmicort Symbicort twice daily -Echocardiogram shows LVEF 60 to 65% -Switch back to oral Lasix 20 daily, IV Lasix discontinued -PT OT evaluation -Patient may need home care at the time of discharge Normocytic anemia, no active bleeding Mild hyponatremia -Repeat labs tomorrow Chronic: Hypertension GERD Colorectal cancer status post colectomy Seizure disorder DVT ppx: Lovenox Code status: Full code Anticipated discharge place: pending clinical course Anticipated discharge time: pending clinical course Objective - Vital Signs Vital signs: Vital Signs Temp 97.9 F 10/08/24 06:47 Pulse 84 10/08/24 11:49 Resp 16 10/08/24 06:47 BP 149/71 10/08/24 06:47 Pulse Ox 97 10/08/24 06:47 FiO2 Intake & Output 10/07/24 10/08/24 10/08/24 18:59 06:59 18:59 Intake Total 1214 Balance 1214 Weight 45.359 kg Intake: Oral 1214 Other: Voiding Method Bedside Commode Bedside Commode Bedside Commode # Voids 3 3 - Labs CBC & Chem 7: 10/08/24 07:33 10/08/24 07:33 Labs: Abnormal Lab Results - Last 24 Hours (Table) 10/08/24 10/08/24 Range/Units 07:33 07:33 RBC 3.55 L (3.80-5.40) m/uL Hgb 10.0 L (11.4-16.0) gm/dL Hct 33.3 L (34.0-46.0) % MCHC 30.0 L (31.0-37.0) g/dL RDW 17.1 H (11.5-15.5) % Lymphocytes # 0.5 L (1.0-4.8) k/uL Sodium 134 L (137-145) mmol/L Carbon Dioxide 32 H (22-30) mmol/L BUN 19 H (7-17) mg/dL Glucose 117 H (74-99) mg/dL Total Protein 5.9 L (6.3-8.2) g/dL
[2024-10-08] MEDS: PETROLATUM, WHITE OINT 50 GM TUBE TOPICAL PRN (20:15)
[2024-10-09] MEDS: FUROSEMIDE 20 MG TAB PO SCH (07:51)
[2024-10-09 08:24] LABS: Basophils # (A) 0 X 10*3/uL (0.00-0.10); Basophils % (A) 0 %; Eosinophils # (A) 0 X 10*3/uL (0.04-0.35); Eosinophils % (A) 0 %; HGB 10.6 g/dL (12.0-15.0); Lymphocytes # (A) 0.73 X 10*3/uL (0.90-5.00); Lymphocytes % (A) 8.6 %; MCH 28.7 pg (27.0-32.0); MCHC 31.2 g/dL (32.0-37.0); MCV 92.1 FL (80.0-97.0); Mean Platelet Volume 9.4 FL (9.5-12.2); Monocytes # (A) 0.54 X 10*3/uL (0.20-1.00); Monocytes % (A) 6.4 %; NRBC Per 100 WBC 0 X 10*3/uL (0.00-0.01); Neutrophils # (A) 7.13 X 10*3/uL (1.80-7.70); Neutrophils % (A) 84.5 %; Platelet Count 241 X 10*3/uL (140-440); RBC 3.69 X 10*6/uL (4.10-5.20); RDW 17.7 % (11.5-14.5); WBC 8.44 X 10*3/uL (4.50-10.00)
[2024-10-09 08:28] LABS: BUN/Creat Ratio 32.86 Ratio (12.00-20.00); Carbon Dioxide 27.4 mmol/L (21.6-31.8); Chloride 100 mmol/L (96-109); Glucose 141 mg/dL (70-110); Potassium 4.5 mmol/L (3.5-5.5); Sodium 137 mmol/L (135-145)
[2024-10-09 08:29] LABS: Calcium 9.1 mg/dL (8.7-10.3)
[2024-10-09] MEDS: predniSONE 20 MG TAB PO SCH (10:18)
--- NOTE | 2024-10-09 11:30 | P.DS ---
Providers Date of admission: 10/06/24 21:57 Expected date of discharge: 10/09/24 Attending physician: Zuri Trotter MD Consults: 10/06/24 21:57 Consult Physician Routine Consulting Provider: Amy Fernández Consult Reason/Comments: copd Do you want consulting provider notified?: Yes Primary care physician: Pat Cote, [facility] Hospital Course: Hospital Course: Patient is a 74-year-old female with colorectal cancer (stage 2 as reported by patient, s/p colectomy and colostomy, completed radiation and currently undergoing 3rd round of chemo, following with Oncology out of [facility]), hypertension, COPD, chronic respiratory failure on 2 L home oxygen presents with new onset shortness of breath. Patient states she has had trouble breathing and productive cough for the last several days. She reports some associated chills, back pain, weakness and dizziness. Patient admitted management of acute COPD exacerbation. Ordered IV steroids, DuoNebs, azithromycin. Patient noted to have peripheral edema on admission and echocardiogram was ordered and amlodipine home dose was held. ALP was also elevated but downtrending throughout hospital stay. Patient symptoms improved throughout hospital stay. Patient's oxygen requirements have returned to baseline. No new complications occurred. Patient is cleared for discharge today and prescribed prednisone 40 mg daily for 2 more days. We discontinued her oral Bactrim on her home medications. She is advised to follow-up with pulmonology, and PCP on outpatient basis. Will receive home care. Final Diagnosis: #. Acute COPD exacerbation #. Acute on chronic hypoxic respiratory failure #. Normocytic anemia #. Hypertension #. GERD #. Colorectal cancer status post colectomy #. Seizure disorder Physical examination: Vital signs reviewed General: non toxic, no distress, chronically ill-appearing, on nasal cannula Derm: no unusual rashes/lesions, warm, right upper chest wall Chemo-Port noted Head: atraumatic, normocephalic, symmetric Eyes: EOMI, anicteric sclera, pupils equal round reactive to light ENT: Nose and ears atraumatic Neck: No cervical lymphadenopathy, trachea midline, supple Mouth: no lip lesion, mucus membranes moist Cardiovascular: S1S2 reg, no murmur Lungs: CTA bilateral, no rhonchi, no rales, no accessory muscle use Abdominal: soft, nondistended, nontender to palpation, no guarding, ostomy bag noted with good output Ext: muscle strength 5 out of 5 in all 4 extremities grossly, no gross muscle atrophy, no contractures, positive dorsalis pedis pulse bilateral, no edema Neuro: CN II-XI grossly intact, no gross focal neuro deficits Psych: Alert, oriented, appropriate affect and mood A total of 36 minutes of time were spent preparing this complex discharge summary. Patient was discharged on 10/09/24 at 932. I have seen and evaluated the patient today. Discussed with the resident and agree with the residents finding and plan as documented in the resident's note. Changes highlighted in blue font. Patient Condition at Discharge: Good Plan - Discharge Summary Discharge Rx Participant: No New Discharge Prescriptions: New predniSONE [Deltasone] 40 mg PO DAILY #4 tab Continue Omeprazole [PriLOSEC] 20 mg PO DAILY Furosemide [Lasix] 20 mg PO DAILY Fluticasone/Umeclidin/Vilanter [Trelegy Ellipta 100-62.5-25] 1 puff INHALATION RT-DAILY Ipratropium-Albuterol Nebulize [Duoneb 0.5 mg-3 mg/3 ml Soln] 3 ml INHALATION RT-Q6H amLODIPine [Norvasc] 10 mg PO DAILY Spironolactone [Aldactone] 50 mg PO DAILY Phenytoin Sodium Extended [Dilantin] 200 mg PO HS HYDROcodone/APAP 5-325MG [[place] 5-325] 1 tab PO Q4HR Discontinued Sulfamethox-Tmp 400-80Mg [Bactrim SS 400-80 mg] 1 tab PO BID Discharge Medication List Fluticasone/Umeclidin/Vilanter [Trelegy Ellipta 100-62.5-25] 1 puff INHALATION RT-DAILY 10/07/24 [History] Furosemide [Lasix] 20 mg PO DAILY 10/07/24 [History] HYDROcodone/APAP 5-325MG [[place] 5-325] 1 tab PO Q4HR 10/07/24 [History] Ipratropium-Albuterol Nebulize [Duoneb 0.5 mg-3 mg/3 ml Soln] 3 ml INHALATION RT-Q6H 10/07/24 [History] Omeprazole [PriLOSEC] 20 mg PO DAILY 10/07/24 [History] Phenytoin Sodium Extended [Dilantin] 200 mg PO HS 10/07/24 [History] Spironolactone [Aldactone] 50 mg PO DAILY 10/07/24 [History] amLODIPine [Norvasc] 10 mg PO DAILY 10/07/24 [History] predniSONE [Deltasone] 40 mg PO DAILY #4 tab 10/09/24 [Rx] Follow up Appointment(s)/Referral(s): Amy Fernández MD [STAFF PHYSICIAN] - 10/19/24 9:45 am [facility] [NON-STAFF] - As Needed Zeina Whitney MD [RESIDENT] - 10/17/24 1:00 pm ([address]) [facility], [NON-STAFF] - As Needed ( [facility] will call you after discharge to set up first appointment) Patient Instructions/Handouts: Prednisone (By mouth), COPD (Chronic Obstructive Pulmonary Disease) (DC) Activity/Diet/Wound Care/Special Instructions: Please see your Primary Care Physician Discharge Disposition: HOME SELF-CARE
[2024-10-09 12:32] VITALS: BP 130/73; PULSE 79; RESP 18; TEMP 97.9
[2024-10-09] MEDS: ALBUTEROL NEBULIZED 2.5 MG/3 ML INHALATION SCH (12:38)
--- NOTE | 2024-10-09 13:26 | P.PN ---
Subjective Progress Note Date: 10/09/24 This is a pleasant very thin cachectic 74-year-old female who has a history of rectal cancer and had undergone chemotherapy and radiation. She follows with Dr. Gabi Roberto out of [place]. She states a recent PET scan is showing continued evidence of cancer but no metastasis. She does have chronic and ongoing tobacco dependence of greater than 50 years and chronic obstructive pulmonary disease. She does have home oxygen. She is maintained on Trelegy and DuoNebs. She has not been seen by mess attendant crew in the outpatient setting. She presented here to the emergency room last evening with complaints of increasing shortness of breath, cough and congestion. She also was having pain in her back . Chest x-ray shows no acute cardiopulmonary process. Evidence of COPD. CT angiogram ruled out pulmonary embolism. There is mild COPD. White count 3.4. Hemoglobin 9.7. Platelets 219. Sodium 134. Potassium 4.0. Bicarb 28. BUN 13. Creatinine 0.59. D-dimer 3.60. Troponin negative x 1. proBNP 397. Viral screen is negative. She is seen today in consultation on the regular medical floor. She is currently sitting up in bed. Awake and alert in no acute distress. She is maintaining O2 saturations in the 90s on 2 L/min per nasal cannula. He is feeling quite a bit better today compared to yesterday. She has been afebrile. Hemodynamically stable. The patient is seen today October 08, 2024 in follow-up on the regular medical floor. She is currently sitting up in bed. Awake and alert in no acute distress. Maintaining O2 saturations in the 90s on 2 L/min per nasal cannula. She has been afebrile. Hemodynamically stable. White count 6.6. Hemoglobin 10.0. Platelets 250. Sodium 134. Potassium 4.7. Bicarb 32. BUN 19. Creatinine 0.64. Glucose 117. She is continued on DuoNeb inhalations, Symbicort, Solu-Medrol. She remains on IV diuretics. Lovenox for DVT prophylaxis. Completed empiric antibiotics today. The patient is seen today October 09, 2024 in follow-up on the regular medical floor. She is awake and alert in no acute distress. She is currently maintaining O2 saturations up to 99% on 3 L/min per nasal cannula. Afebrile. Hemodynamically stable. White count 8.4. Hemoglobin 10.6. Platelets 241. Sodium 137. Potassium 4.5. Bicarb 27. BUN 23. Creatinine 0.7. Glucose 141. She remains on DuoNeb inhalations, Symbicort, Solu-Medrol. Objective - Vital Signs Vital signs: Vital Signs Temp 97.9 F 10/09/24 11:47 Pulse 79 10/09/24 11:47 Resp 18 10/09/24 11:47 BP 130/73 10/09/24 11:47 Pulse Ox 99 10/09/24 11:47 FiO2 Intake & Output 10/08/24 10/09/24 10/09/24 18:59 06:59 18:59 Intake Total 960 Balance 960 Intake: Oral 960 Other: Voiding Method Bedside Commode Bedside Commode Bedside Commode # Voids 4 4 - Exam GENERAL EXAM: Alert, frail, cachectic 74-year-old female, up in her room with a walker, on 3 L nasal cannula, in no apparent distress. HEAD: Normocephalic. EYES: Normal reaction of pupils, equal size. NOSE: Clear with pink turbinates. THROAT: No erythema or exudates. NECK: No masses, no JVD. CHEST: No chest wall deformity. LUNGS: Equal air entry with faint end expiratory wheeze, diminished. CVS: S1 and S2 normal with no audible murmur, regular rhythm. ABDOMEN: Ostomy in place with positive output. No hepatosplenomegaly, normal bowel sounds, no guarding or rigidity. SPINE: No scoliosis or deformity SKIN: No rashes CENTRAL NERVOUS SYSTEM: No focal deficits, tone is normal in all 4 extremities. EXTREMITIES: There is trace peripheral edema. No clubbing, no cyanosis. Peripheral pulses are intact. - Labs CBC & Chem 7: 10/09/24 05:19 10/09/24 05:19 Labs: Abnormal Lab Results - Last 24 Hours (Table) 10/09/24 10/09/24 Range/Units 05:19 05:19 RBC 3.69 L (4.10-5.20) X 10*6/uL Hgb 10.6 L (12.0-15.0) g/dL Hct 34.0 L (37.2-46.3) % MCHC 31.2 L (32.0-37.0) g/dL RDW 17.7 H (11.5-14.5) % MPV 9.4 L (9.5-12.2) FL Lymphocytes # 0.73 L (0.90-5.00) X 10*3/uL Eosinophils # 0 L (0.04-0.35) X 10*3/uL BUN/Creatinine Ratio 32.86 H (12.00-20.00) Ratio Glucose 141 H (70-110) mg/dL Assessment and Plan Assessment: Acute on chronic hypoxemic respiratory failure secondary to an acute exacer bation of chronic obstructive pulmonary disease. Chest x-ray shows no acute process. CT angiogram ruled out pulmonary embolism. Viral screen negative Peripheral edema, on diuretics in the outpatient setting Severe oxygen dependent chronic obstructive pulmonary disease Chronic and ongoing tobacco dependence History of rectal cancer status post chemoradiation following at [facility] History of seizures, maintained on Dilantin Gastroesophageal reflux disease, maintained on Prilosec Plan: The patient was seen and evaluated Labs and medications reviewed Continue DuoNeb inhalations, Symbicort Solu-Medrol transitioned to prednisone taper Transitioned to oral diuretics The patient stated DNR CODE STATUS Cleared for discharge from the pulmonary standpoint Plan is for home with home care This patient was seen independently by the pulmonary nurse practitioner addressing pulmonary issues I have personally seen and examined the patient, performed the documentation and the assessment and plan as written. Number of minutes spent on the visit: 23 Dictation was produced using [employer] dictation software. Please excuse any grammatical, word or spelling errors.
== END 2024-10-09 12:45 | disposition home or self-care (01) | DRG 189 ==
LOC: EC 19:13 → UNDOADMOB 21:57 → 6NMEDSUR 21:57 → 5NMEDONC 22:41 → OBSVTOIN 10-08 18:53 → UNDODISOB 10-09 12:45
PROVIDERS: ADMIT Internal Medicine; ATTEND Internal Medicine
DX: J96.21 Acute and chronic respiratory failure with hypoxia (principal); R64 Cachexia; C19 Malignant neoplasm of rectosigmoid junction; E87.1 Hypo-osmolality and hyponatremia; J44.1 Chronic obstructive pulmonary disease with (acute) exacerbation; I11.0 Hypertensive heart disease with heart failure; D64.9 Anemia, unspecified; G40.909 Epilepsy, unspecified, not intractable, without status epilepticus; Z68.1 Body mass index [BMI] 19.9 or less, adult; I50.9 Heart failure, unspecified; Z93.3 Colostomy status; M54.9 Dorsalgia, unspecified; F17.200 Nicotine dependence, unspecified, uncomplicated; K21.9 Gastro-esophageal reflux disease without esophagitis; Z79.899 Other long term (current) drug therapy; Z90.49 Acquired absence of other specified parts of digestive tract; Z92.21 Personal history of antineoplastic chemotherapy; Z92.3 Personal history of irradiation; Z99.81 Dependence on supplemental oxygen; Z88.6 Allergy status to analgesic agent; Z88.1 Allergy status to other antibiotic agents
CPT/HCPCS: 36415; 71046; 71275; 80048; 80053; 83605; 83735; 83880; 84484; 85025; 85379; 85610; 85730; 87636; 93005; 93306; 94640; 96372; 96374; 96375; 96376; 99285